=== PATIENT | female | born 1980 | race Caucasian/White ===

== ENCOUNTER → 2020-04-07 14:29 | Outpatient (BNVA) | payer MEDICAID, SELFPAY | PROVIDERS: PCP Family Medicine; Referring Provider Family Medicine; Visit Provider Obstetrics & Gynecology | DX: N92.1 Excessive and frequent menstruation with irregular cycle (principal); N83.291 Other ovarian cyst, right side | CPT/HCPCS: 99213 ==

== ENCOUNTER 2020-06-23 08:53 | Outpatient (REF) | payer MEDICAID, SELFPAY ==
--- NOTE | 2020-06-23 08:45 | EMG_ITS ---
HISTORY OF PRESENT ILLNESS: This is a 39-year-old woman with a history of numbness in her legs, mostly on the right side at times and at other times more on the left. This has been going on intermittently for a few months. She has no other medical problems. PHYSICAL EXAMINATION: On examination, she is alert and oriented with normal intellectual functions. Cranial nerves II through XII are normal. Muscle tone and strength are normal in all 4 extremities. Deep tendon reflexes symmetrical. IMPRESSION: Rule out peroneal neuropathy, rule out peripheral neuropathy. Nerve conduction EMG study: Absent left superficial peroneal sensory potential suggestive of sensory peripheral neuropathy. No evidence of diffuse neuropathy. Normal EMG of the left L4-S1 innervated muscles. MD AVANI Rocha/BERNARDA / [id number]
== END 2020-06-23 08:54 | disposition home or self-care (01) ==
LOC: HO.NEURO 08:53
PROVIDERS: PCP Family Medicine; Visit Provider Family Medicine
DX: R20.2 Paresthesia of skin (principal)
CPT/HCPCS: 95860; 95886; 95911

== ENCOUNTER 2020-07-06 13:09 | Outpatient (REF) | payer MEDICAID, SELFPAY ==
[2020-07-06 14:48] LABS: Hematocrit 36.1 % (37-47); Hemoglobin 11.5 g/dl (12.0-16.0); Mean Corpuscular HGB Conc 31.9 g/dl (31.0-35.0); Mean Corpuscular Hemoglobin 28.5 pg (27.0-33.0); Mean Corpuscular Volume 89.4 fL (80-98); Mean Platelet Volume 10.7 fL (9.4-12.3); Platelet Count 333 X10*3/uL (160-400); Red Blood Count 4.04 X10*6/uL (4.20-5.50); Red Cell Distribution Width 16.1 % (11.0-16.0)
[2020-07-09 22:06] LABS: HPV mRNA E6/E7 Not Detected (Not Detected)
== END 2020-07-06 13:10 | disposition home or self-care (01) ==
LOC: HO.LAB 13:09
PROVIDERS: PCP Family Medicine; Visit Provider Obstetrics & Gynecology
DX: Z01.419 Encounter for gynecological examination (general) (routine) without abnormal findings (principal); N92.1 Excessive and frequent menstruation with irregular cycle; D64.9 Anemia, unspecified; N94.9 Unspecified condition associated with female genital organs and menstrual cycle; Z79.899 Other long term (current) drug therapy
CPT/HCPCS: 36415; 85027; 87624; 87625; 88141; 88142

== ENCOUNTER 2020-07-07 14:01 | Outpatient (REF) | payer MEDICAID, SELFPAY | END 2020-07-07 14:02 | disposition home or self-care (01) | LOC: HO.LAB 14:01 | PROVIDERS: Visit Provider Obstetrics & Gynecology | DX: Z13.89 Encounter for screening for other disorder (principal) ==

== ENCOUNTER 2020-07-20 10:43 | Outpatient (REF) | payer MEDICAID, SELFPAY ==
--- NOTE | 2020-07-20 10:45 | US_ITS ---
EXAMINATION: US PELVIS COMPLETE US PELVIS TRANSVAGINAL CLINICAL INFORMATION: Excessive and frequent menses. LMP 06/30/2020. COMPARISON: Most recent pelvic ultrasound dated 12/17/2019. TECHNIQUE: Transabdominal and transvaginal imaging was performed. FINDINGS: The uterus is of normal size and slightly heterogeneous measuring 3.9 x 5.0 x 5.6 cm. A regular homogeneous endometrium is identified measuring 1.4 cm. Trace fluid within the endometrium and lower uterine segment. Nabothian cysts. Both ovaries are of normal size and echogenicity. The right measures 4.2 x 3.8 x 4.0 cm for a volume of 33.4 mL. Simple right ovarian cyst measuring up to 3.2 cm. A previously seen simple right ovarian cyst measured up to 3.5 cm. The left measures 2.3 x 1.4 x 2.3 cm for a volume of 3.9 mL. There is no pelvic free fluid. US/US pelvic complete IMPRESSION: 1. Slightly heterogeneous uterine parenchyma without a discrete lesion. Trace fluid within the endometrium and lower uterine segment. No endometrial thickening. 2. Simple right ovarian cyst measuring 3.2 cm (previously 3.5 cm). 3. Unremarkable left ovary.
--- NOTE | 2020-07-20 10:45 | US_ITS ---
EXAMINATION: US PELVIS COMPLETE US PELVIS TRANSVAGINAL CLINICAL INFORMATION: Excessive and frequent menses. LMP 06/30/2020. COMPARISON: Most recent pelvic ultrasound dated 12/17/2019. TECHNIQUE: Transabdominal and transvaginal imaging was performed. FINDINGS: The uterus is of normal size and slightly heterogeneous measuring 3.9 x 5.0 x 5.6 cm. A regular homogeneous endometrium is identified measuring 1.4 cm. Trace fluid within the endometrium and lower uterine segment. Nabothian cysts. Both ovaries are of normal size and echogenicity. The right measures 4.2 x 3.8 x 4.0 cm for a volume of 33.4 mL. Simple right ovarian cyst measuring up to 3.2 cm. A previously seen simple right ovarian cyst measured up to 3.5 cm. The left measures 2.3 x 1.4 x 2.3 cm for a volume of 3.9 mL. There is no pelvic free fluid. US/US transvaginal IMPRESSION: 1. Slightly heterogeneous uterine parenchyma without a discrete lesion. Trace fluid within the endometrium and lower uterine segment. No endometrial thickening. 2. Simple right ovarian cyst measuring 3.2 cm (previously 3.5 cm). 3. Unremarkable left ovary.
== END 2020-07-20 10:44 | disposition home or self-care (01) ==
LOC: HO.US 10:43
PROVIDERS: Visit Provider Obstetrics & Gynecology
DX: N94.9 Unspecified condition associated with female genital organs and menstrual cycle (principal); N92.1 Excessive and frequent menstruation with irregular cycle
CPT/HCPCS: 76830; 76856

== ENCOUNTER 2020-07-23 13:42 | Outpatient (REF) | payer MEDICAID, SELFPAY | END 2020-07-23 13:43 | disposition home or self-care (01) | LOC: HO.LAB 13:42 | PROVIDERS: PCP Family Medicine; Visit Provider Obstetrics & Gynecology | DX: R87.811 Vaginal high risk human papillomavirus (HPV) DNA test positive (principal) | CPT/HCPCS: 57454; 81025; 88305 ==

== ENCOUNTER → 2020-07-27 11:09 | Outpatient (BNVA) | payer MEDICAID, SELFPAY | PROVIDERS: PCP Family Medicine; Visit Provider Obstetrics & Gynecology ==

== ENCOUNTER → 2020-08-05 11:49 | Outpatient (BNVA) | payer MEDICAID, SELFPAY | PROVIDERS: PCP Family Medicine; Visit Provider Obstetrics & Gynecology ==

== ENCOUNTER 2020-09-30 14:26 | Outpatient (REF) | payer MEDICAID, SELFPAY ==
--- NOTE | ~2020-09-30 | US_ITS ---
EXAMINATION: US DIAGNOSTIC ULTRASOUND BREAST, LEFT CLINICAL INFORMATION: Lump. COMPARISON: Mammogram of same day and studies dating back to May 03, 2016. TECHNIQUE: Ultrasound of the breast is performed with real-time sunshine scale imaging and color Doppler. FINDINGS: Targeted left breast ultrasound to region of palpable abnormality upper outer aspect demonstrated at the 2 to 3:00 position a simple cyst measuring approximately 3 mm in diameter. No suspicious solid mass or suspicious region of distal sound shadowing is identified. Results are provided to the patient at time of visit by the technologist. US/US breast LT limited IMPRESSION: No suspicious mammographic or ultrasound findings to suggest malignancy. ASSESSMENT: BI-RADS 2: Benign RECOMMENDATION: Clinical follow-up. Yearly screening mammogram
--- NOTE | ~2020-09-30 | MM_ITS ---
EXAMINATION: MM DIAGNOSTIC DIGITAL BREAST TOMOSYNTHESIS, BILATERAL TARGETED LEFT BREAST ULTRASOUND CLINICAL INFORMATION: Left upper outer quadrant lump for 2 weeks. The lifetime risk of breast cancer based on the Tyrer-Cuzick Model is 14.9%. COMPARISON: Mammography: 11/27/2017 and studies dating back to 05/03/2016 TECHNIQUE: Digital breast tomosynthesis is performed in both the craniocaudal and mediolateral oblique views along with computer-aided detection (CAD). Synthesized 2D images are generated from the tomosynthesis. Targeted left breast ultrasound. FINDINGS: The breasts are almost entirely fatty (ACR BI-RADS breast composition Category a). There are no significant masses, abnormal calcifications, or other abnormalities. There is a stable region of asymmetric density about the upper outer aspect of the left breast. Targeted left breast ultrasound to region of palpable abnormality upper outer aspect demonstrated at the 2 to 3 o'clock position a simple cyst measuring approximately 3 mm in diameter. No suspicious solid mass or suspicious region of distal sound shadowing is identified. Results are provided to the patient at time of visit by the technologist. MM/MM tomosynthesis diagnostic BI IMPRESSION: No suspicious mammographic or ultrasound findings to suggest malignancy. ASSESSMENT: BI-RADS 2: Benign RECOMMENDATION: Clinical follow-up. Yearly screening mammogram This patient's information was entered into a reminder system with a target due date for their next mammogram.
== END 2020-09-30 14:27 | disposition home or self-care (01) ==
LOC: HO.MAMMO 14:26
PROVIDERS: Visit Provider Family Medicine
DX: N63.21 Unspecified lump in the left breast, upper outer quadrant (principal)
CPT/HCPCS: 76642; 77062; 77066